=== PATIENT | female | born 1985 | race Caucasian/White ===

== ENCOUNTER 2016-08-22 21:34 | Emergency (ER) | payer MEDICAID ==
[2016-08-22 21:50] VITALS: BMI 31.8
--- NOTE | 2016-08-22 22:36 | OBHP ---
Datetime: 08/22/2016 22:24 IP Adm Impression: , intrauterine ; No Active Labor; Intact Membranes IP Chief Complaint Other: 30 year old 26 weeks Twin Gestation presents with lower abdominal discomfort and pressure . No uterine contractions. No LOF, no vaginal bleeding. Feels both babies mo ving. PSH: 2 C/Sections PMH:None ROS: Denies urinary symptoms. IP Admit Plan: Discharge home Admit Comment, IP Provider: Not in Labor Pelvic Type - PN: Adequate Extremities - PN: Normal Abdomen - PN: Normal Back - PN: Normal Breast - PN: Not Done Lungs - PN: Normal Heart - PN: Normal Thyroid - PN: Not Done Neurologic - PN: Not Done HEENT - PN: Not Done General - PN: Normal FHR - Baseline A Provider: 150 Membranes, Provider: Intact Gestation - Est Wks by US: 26.0 EGA AdmitDate IP: 26.0 Vital Signs Provider: Reviewed; Within Normal Limits IP Chief Complaint: Maternal discomfort NICHD Decel Fetus A IP Provider: None Dilatation, Provider: 0 Effacement, Provider: 0 Station, Provider: high Genitourinary Exam: Normal DTRs - PN: Normal
== END 2016-08-22 22:26 | disposition home or self-care (01) ==
LOC: C.EROB 21:34
DX: O26.892 Other specified pregnancy related conditions, second trimester (principal); R10.30 Lower abdominal pain, unspecified; Z3A.26 26 weeks gestation of pregnancy